=== PATIENT | female | born 1965 | race Caucasian/White ===

== ENCOUNTER 2017-12-08 08:58 | Day surgery (SDC) | payer BC ==
[2017-12-08] MEDS ORDERED: PROPOFOL 20 ML ONE ×2 (09:04)
[2017-12-08 09:28] VITALS: BMI 23.6
[2017-12-08 11:20] VITALS: BP 116/76; PULSE 76; TEMP 98.2
--- NOTE | 2017-12-10 09:27 | PATH ---
Surgical Pathology Report Patient Name: KADEEM CORTEZ [facility]. Rec. #: [id number] /Age/Gender: 1965 (Age: 52) / F Account: [id number] Location: [facility]-ENDOSCOPY Taken: 12/08/2017 Received: 12/08/2017 Reported: 12/10/2017 Physicians: Regina Smith M.D. Specimen(s) Received A: RIGHT COLON B: TRANSVERSE C: DESCENDING D: BX SIGMOID E: SIGMOID F: RECTUM Clinical History Colitis Postoperative diagnosis: History of colitis, rule out dysplasia Final Diagnosis A. COLON, RIGHT, BIOPSY: COLONIC MUCOSA WITH NO PATHOLOGIC CHANGES. NO ACTIVE COLITIS, ARCHITECTURAL DISTORTION, GRANULOMATA, OR DYSPLASIA IDENTIFIED. NO MICROSCOPIC COLITIS IDENTIFIED (NO LYMPHOCYTIC OR COLLAGENOUS COLITIS IDENTIFIED). B. COLON, TRANSVERSE, BIOPSY: COLONIC MUCOSA WITH NO PATHOLOGIC CHANGES. NO ACTIVE COLITIS, ARCHITECTURAL DISTORTION, GRANULOMATA, OR DYSPLASIA IDENTIFIED. NO MICROSCOPIC COLITIS IDENTIFIED (NO LYMPHOCYTIC OR COLLAGENOUS COLITIS IDENTIFIED). C. COLON, DESCENDING, BIOPSY: COLONIC MUCOSA WITH NO PATHOLOGIC CHANGES. NO ACTIVE COLITIS, ARCHITECTURAL DISTORTION, GRANULOMATA, OR DYSPLASIA IDENTIFIED. NO MICROSCOPIC COLITIS IDENTIFIED (NO LYMPHOCYTIC OR COLLAGENOUS COLITIS IDENTIFIED). D. COLON, SIGMOID, BIOPSY: COLONIC MUCOSA WITH NO PATHOLOGIC CHANGES. NO ACTIVE COLITIS, ARCHITECTURAL DISTORTION, GRANULOMATA, OR DYSPLASIA IDENTIFIED. NO MICROSCOPIC COLITIS IDENTIFIED (NO LYMPHOCYTIC OR COLLAGENOUS COLITIS IDENTIFIED). E. COLON, SIGMOID POLYP, BIOPSY: COLONIC MUCOSA WITH MILD HYPERPLASTIC CHANGES. NO ACTIVE COLITIS, CRYPT ARCHITECTURAL DISTORTION, GRANULOMATA, OR DYSPLASIA IDENTIFIED. NO MICROSCOPIC COLITIS IDENTIFIED (NO LYMPHOCYTIC OR COLLAGENOUS COLITIS IDENTIFIED). F. COLON, RECTUM, BIOPSY: COLONIC MUCOSA WITH NO PATHOLOGIC CHANGES. NO ACTIVE COLITIS, ARCHITECTURAL DISTORTION, GRANULOMATA, OR DYSPLASIA IDENTIFIED. NO MICROSCOPIC COLITIS IDENTIFIED (NO LYMPHOCYTIC OR COLLAGENOUS COLITIS IDENTIFIED). Electronically Signed Errol Uriarte M.D. Gross Description A. Received in formalin, labeled "right colon" are 2 garcia, irregular portions of soft tissue measuring 0.2 and 0.3 cm. in greatest dimension. The specimens are submitted in toto in one cassette. B. Received in formalin, labeled "transverse" are 2 garcia, irregular portions of soft tissue measuring 0.1 and 0.2 cm. in greatest dimension. The specimens are submitted in toto in one cassette. C. Received in formalin, labeled "descending" are 2 garcia, irregular portions of soft tissue measuring 0.2 and 0.5 cm. in greatest dimension. The specimens are submitted in toto in one cassette. D. Received in formalin, labeled "sigmoid" are 2 garcia, irregular portions of soft tissue measuring 0.2 and 0.3 cm. in greatest dimension. The specimens are submitted in toto in one cassette. E. Received in formalin, labeled "sigmoid polyp" is a garcia, irregular portion of soft tissue measuring 0.3 cm. in greatest dimension. The specimen is submitted in toto in one cassette. F. Received in formalin, labeled "rectum" is a garcia, irregular portion of soft tissue measuring 0.5 cm. in greatest dimension. The specimen is submitted in toto in one cassette. 12/09/2017 [facility]12/09/2017
== END 2017-12-08 11:22 | disposition home or self-care (01) ==
LOC: FASU-ENDO 08:58
PROVIDERS: ATTEND Internal Medicine Gastroenterology
PROC: 0DBN8ZX Excision of Sigmoid Colon, Via Natural or Artificial Opening Endoscopic, Diagnostic (ICD-10-PCS; 2017-12-08)
PROC: 0DBP8ZX Excision of Rectum, Via Natural or Artificial Opening Endoscopic, Diagnostic (ICD-10-PCS; 2017-12-08)
PROC: 0DBM8ZX Excision of Descending Colon, Via Natural or Artificial Opening Endoscopic, Diagnostic (ICD-10-PCS; 2017-12-08)
PROC: 0DBK8ZX Excision of Ascending Colon, Via Natural or Artificial Opening Endoscopic, Diagnostic (ICD-10-PCS; principal; 2017-12-08 10:18)
PROC: 0DBL8ZX Excision of Transverse Colon, Via Natural or Artificial Opening Endoscopic, Diagnostic (ICD-10-PCS; 2017-12-08 10:18)
DX: Z09 Encounter for follow-up examination after completed treatment for conditions other than malignant neoplasm (principal); Z87.19 Personal history of other diseases of the digestive system; D12.5 Benign neoplasm of sigmoid colon; K57.30 Diverticulosis of large intestine without perforation or abscess without bleeding
CPT/HCPCS: 84703; 88305-TC